=== PATIENT | female | born 1980 | race Caucasian/White ===

== ENCOUNTER → 2022-11-28 08:29 | Outpatient (CLI) | payer OTHER, MEDICAID, SELFPAY ==
[2022-11-28 09:14] LABS: Hematocrit 41.4 % (36-46); Hemoglobin 14.5 g/dL (12.0-16.0); Mean Corpuscular Hemoglobin 30.4 PG (26-34); Mean Corpuscular Volume 86.9 fL (80-100); Platelet Count 240 X10^3/uL (150-400); Red Blood Cell Count 4.77 X10^6/uL (4.0-5.2); Red Cell Distribution Width 12.7 % (11.6-14.8); White Blood Cell Count 5.5 X10^3/uL (4.5-11.0)
[2022-11-28 10:29] LABS: HEMOLYSIS < 15 (0-50); Iron 70 ug/dL (37-170)
[2022-11-28 10:31] LABS: Alanine Aminotransferase 38 IU/L (<35); Albumin 4.4 g/dL (3.5-5.0); Albumin Globulin Ratio 1.5 (1.0-2.8); Alkaline Phosphatase 43 U/L (38-126); Aspartate Aminotransferase 28 IU/L (14-36); BUN Creatinine Ratio 23.1 (6-22); Bilirubin Total 0.6 mg/dL (0.2-1.3); Blood Urea Nitrogen 21 mg/dL (7-17); Calcium 9.1 mg/dL (8.4-10.2); Carbon Dioxide 29 mmol/L (22-32); Chloride 102 mmol/L (98-107); Cholesterol 180 mg/dL (140-199); Estimated Glomerular Filt Rate > 60 mL/min (>60); Glucose 89 mg/dL (70-100); HDL Cholesterol 86 mg/dL (40-60); HEMOLYSIS < 15 (0-50); LDL Cholesterol Calculated 83 mg/dL (<100); Potassium 4.7 mmol/L (3.4-5.1); Sodium 139 mmol/L (137-145); Total Protein 7.4 g/dL (6.3-8.2); Triglycerides 54 mg/dL (35-150)
[2022-11-28 10:41] LABS: Percent Iron Saturation 29 % (15-50); Total Iron Binding Capacity 245 ug/dL (265-497); Transferrin 194 mg/dL (206-381)
[2022-11-28 11:01] LABS: TSH w/ Reflex to FT4 1.15 uIU/mL (0.47-4.68)
[2022-11-28 11:06] LABS: Ferritin 44 ng/mL (6-137); Testosterone 89.1 ng/dL (5.71-77.0)
== END ==
PROVIDERS: PCP Registered Nurse Diabetes Educator; Referring Provider Registered Nurse Diabetes Educator; Visit Provider Registered Nurse Diabetes Educator
DX: Z00.00 Encounter for general adult medical examination without abnormal findings (principal); L68.0 Hirsutism
CPT/HCPCS: 36415; 80053; 80061; 82627; 82728; 83498; 83540; 83550; 84403; 84443; 85027

== ENCOUNTER → 2022-12-22 16:48 | Outpatient (CLI) | payer OTHER, MEDICAID, SELFPAY ==
--- NOTE | 2022-12-22 16:49 | DI.US.S_ITS ---
PROCEDURE: US PELVIC COMPLETE INDICATIONS: EVALUATE HYPERANDROGENISM , IRREGULAR MENSES TECHNIQUE: Real-time scanning was performed of the pelvic organs, with image documentation. Additional endovaginal scanning was necessary due to incomplete visualization of the adnexal and endometrial structures by transabdominal scanning. COMPARISON: [facility], US, PELVIC COMPLETE, 01/28/2014, 9:02. FINDINGS: Uterus: Uterus is anteverted and normal in size at 9.7 x 4.9 x 7.7 cm. The myometrium is homogeneous. The endometrium measures 13 mm combined thickness. No focal intrauterine abnormality seen. Ovaries: The right ovary measures 3.4 x 2.5 x 2.9 cm, with a calculated ovarian volume of 13 cc. The left ovary measures 3.3 x 2.4 x 2.5 cm, with a calculated ovarian volume of 10 cc. The ovaries have a normal sonographic appearance. There greater than 12 follicles seen in each ovary. No suspicious adnexal masses are seen. There is a 2.7 x 1.9 x 1.7 cm complex, septated cyst in the left ovary. There is mild peripheral vascularity. Other: No pathologic free abdominal or pelvic fluid. IMPRESSION: 1. Prominent ovarian volumes with greater than 12 follicles in each ovary. Findings may be seen in polycystic ovarian syndrome. 2. A 2.7 cm complex, septated left ovarian cyst. Recommend follow-up pelvic ultrasound in 6-12 weeks to document stability versus resolution. We strive to produce accurate, complete, and clear reports of imaging services. To assist us in improving patient care, this report was composed using standard report templates and voice recognition software. Therefore, it may contain abnormal punctuation, insertions and/or omissions. Occasional wrong-word or sound-alike substitutions may occur. Though we review the report and make efforts to correct it, we do recommend that the report be read carefully in proper context to recognize any text inaccuracies. Dictated by: Luis Rowe M.D. on 12/23/2022 at 12:04 Approved by: Luis Rowe M.D. on 12/23/2022 at 12:07
== END ==
PROVIDERS: PCP Registered Nurse Diabetes Educator; Referring Provider Registered Nurse Diabetes Educator; Visit Provider Registered Nurse Diabetes Educator
DX: N92.6 Irregular menstruation, unspecified (principal); R79.89 Other specified abnormal findings of blood chemistry; L68.0 Hirsutism; N83.202 Unspecified ovarian cyst, left side
CPT/HCPCS: 76830; 76856

== ENCOUNTER → 2023-02-06 16:38 | Outpatient (CLI) | payer OTHER, MEDICAID, SELFPAY ==
--- NOTE | 2023-02-06 16:41 | DI.US.S_ITS ---
PROCEDURE: US PELVIC COMPLETE INDICATIONS: f/u L ovarian cyst TECHNIQUE: Real-time scanning was performed of the pelvic organs, with image documentation. Additional endovaginal scanning was necessary due to incomplete visualization of the adnexal and endometrial structures by transabdominal scanning. COMPARISON: [facility], US, US PELVIC COMPLETE, 12/22/2022, 17:02. FINDINGS: Uterus: The uterus is normal in size at 8.2 x 5.3 x 6.9 cm. The myometrium is homogeneous. The endometrium measures 5 mm combined thickness. Ovaries: The right ovary measures 3.1 x 1.9 x 1.9 cm, with a calculated ovarian volume of 5.2 cc. A right paraovarian cyst can be seen, which measures up to 16, which is not regarded to be suspicious. The left ovary measures 3 x 2.8 x 3.3 cm, with a calculated ovarian volume of 14.4 cc. The previously seen septated left ovarian cyst has resolved. The ovaries have a normal sonographic appearance. Less than 12 follicles can be seen in each ovary. No adnexal masses are seen. Other: No pathologic free abdominal or pelvic fluid. IMPRESSION: Interval resolution of the previously seen left ovarian septated cyst. We strive to produce accurate, complete, and clear reports of imaging services. To assist us in improving patient care, this report was composed using standard report templates and voice recognition software. Therefore, it may contain abnormal punctuation, insertions and/or omissions. Occasional wrong-word or sound-alike substitutions may occur. Though we review the report and make efforts to correct it, we do recommend that the report be read carefully in proper context to recognize any text inaccuracies. Dictated by: Arjun Alonso M.D. on 02/06/2023 at 16:59 Approved by: Arjun Alonso M.D. on 02/06/2023 at 17:00
== END ==
PROVIDERS: PCP Registered Nurse Diabetes Educator; Referring Provider Registered Nurse Diabetes Educator; Visit Provider Registered Nurse Diabetes Educator
DX: N83.202 Unspecified ovarian cyst, left side (principal)
CPT/HCPCS: 76856

== ENCOUNTER → 2023-05-09 16:00 | Outpatient (CLI) | payer OTHER, MEDICAID, SELFPAY ==
[2023-05-09 17:06] LABS: Alanine Aminotransferase 33 IU/L (<35); Albumin 4.5 g/dL (3.5-5.0); Albumin Globulin Ratio 1.5 (1.0-2.8); Alkaline Phosphatase 42 U/L (38-126); Aspartate Aminotransferase 33 IU/L (14-36); Bilirubin Total 0.7 mg/dL (0.2-1.3); Blood Urea Nitrogen 20 mg/dL (7-17); Calcium 8.9 mg/dL (8.4-10.2); Carbon Dioxide 30 mmol/L (22-32); Chloride 102 mmol/L (98-107); Estimated Glomerular Filt Rate > 60 mL/min (>60); Glucose 102 mg/dL (70-100); HEMOLYSIS < 15 (0-50); Potassium 3.5 mmol/L (3.4-5.1); Sodium 138 mmol/L (137-145); Total Protein 7.5 g/dL (6.3-8.2)
[2023-05-09 17:21] LABS: Prolactin 9.5 ng/mL (3.0-18.6)
[2023-05-09 18:18] LABS: Follicle Stimulating Hormone 5.52 mIU/mL; Luteinizing Hormone 22.2 mIU/mL
[2023-05-12 10:31] LABS: Insulin Level Total 10.6 uIU/mL (2.6-24.9)
[2023-05-15 08:42] LABS: Percent Free Testosterone 2.06 % (0.50-2.80); Testosterone Free 1.12 ng/dL (0.10-0.85); Testosterone Total 54.2 ng/dL (.)
== END ==
PROVIDERS: Family Provider Registered Nurse Diabetes Educator; PCP Registered Nurse Diabetes Educator; Referring Provider Internal Medicine Endocrinology, Diabetes & Metabolism; Visit Provider Internal Medicine Endocrinology, Diabetes & Metabolism
DX: R79.89 Other specified abnormal findings of blood chemistry (principal); L68.0 Hirsutism; L65.9 Nonscarring hair loss, unspecified
CPT/HCPCS: 36415; 80053; 82157; 82627; 83001; 83002; 83498; 83525; 84146; 84402; 84403; 84443

== ENCOUNTER → 2023-05-16 12:42 | Outpatient (CLI) | payer OTHER, MEDICAID, SELFPAY | PROVIDERS: Family Provider Registered Nurse Diabetes Educator; PCP Registered Nurse Diabetes Educator; Referring Provider Internal Medicine Endocrinology, Diabetes & Metabolism; Visit Provider Internal Medicine Endocrinology, Diabetes & Metabolism | DX: R79.89 Other specified abnormal findings of blood chemistry (principal) | CPT/HCPCS: 82533 ==

== ENCOUNTER 2023-06-28 10:30 | Outpatient (RCR) | payer OTHER, MEDICAID, SELFPAY ==
--- NOTE | 2023-03-30 15:51 | PT.OIE ---
Current Diagnoses Pelvic muscle wasting (03/30/23) Other specified dyspareunia (03/30/23) Past Medical History (Last Updated 12/14/22 @ 19:16 by Kristen Pruitt) Abnormal Pap smear of cervix (~2020) Acne (~1995) ADHD (~1981) Chicken pox (~1987) Herpes (~1997) Injury (~2003) Irregular menstrual cycle (~1996) Migraines (~1994) Visit Care Team Role Provider Type JOSSY Roberts Family Provider Advanced Supervisor [employer] Primary Care Provider Specialty: Medical Address: [address] [place] [address] Email: [email or web address] Yamila Taveras MD Attending Provider Physician Referring Provider Specialty: Gynecology KITCHEN HELPER Obstetrics Address: [address] [place] [address] Email: [email or web address] Physical Therapy Initial Evaluation PT-OP-A Visit Information Start: 03/30/23 09:00 Freq: Status: Active Protocol: Document 03/30/23 09:52 [facility] (Rec: 03/30/23 10:54 [facility] [id number]) Out-Patient Physical Therapy Visit Information Visit Information Visit Type Initial Evaluation Visit Start Time 09:50 Visit Stop Time 10:35 Total Visit Minutes 45 Visit Number 1 Evaluation Information Evaluation Date 03/30/23 PT-OP-B Current Condition Start: 03/30/23 09:00 Freq: Status: Active Protocol: Document 03/30/23 09:52 [facility] (Rec: 03/30/23 10:54 [facility] [id number]) Current Condition History of Current Condition Onset Date 2010 Current Complaints uterine prolase and decreased sensation of pelvic floor, History of Current Condition her mom has had prolapse, she has had 4 large children, she did notice a few times when jumping on the trampoline she was leaking. She did use a nmes unit but she feels like it lessened her senstation with intercourse. 4th degree tear last 2000 -2010 she tore on her 2nd she tore the most in 2003. Episiotomy with the other 2. She wants to prevent further prolapse, she also notes her cervix is low and lower than in her past. It does hurt sometimes during intercouse the position on the cervix. 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 Her symptoms are intermittent. Sometimes if her bladder is full if she is working hard then she will have occosional leakage. Pt notes she is constipated alot. Right before menstruation she can feel her uterus more heavy. Treatment Goals Patient/Caregiver Goals pts goals include preventing further prolapse symptoms and improving sensation of her pelvic floor PT-OP-C Subjective Start: 03/30/23 09:00 Freq: Status: Active Protocol: Document 03/30/23 09:52 [facility] (Rec: 03/30/23 10:54 [facility] [id number]) Patient Questionnaires Pelvic Pain and Urgency/Frequency Patient Symptom Scale Pelvic Pain Score 8 PT-OP-I Pelvic Floor Start: 03/30/23 09:00 Freq: Status: Active Protocol: Document 03/30/23 10:54 [facility] (Rec: 03/30/23 11:07 [facility] [id number]) Pelvic Floor Assessment Urine Pelvic Floor Surgery No Urinary Symptoms Falling Out Feeling/Heavy Other Urinary Symptoms intermittent feeling that her cervix is low, intercourse can be painful when she is feeling her cervix is low. pt also reports decreased sensation of a pelvic floor contraction Other Leakage Causes leakage only when jumping on the trampoline and rarely happens Pelvic Clock Pelvic Clock 12-3 Atrophy Pelvic Clock 3-6 Tightness Pelvic Clock 6-9 Tightness Pelvic Clock Other pt has some tightness following a pelvic floor contraction on the lateral willis of the levator ani Prolapse Uterine Prolapse Grade 1 Prolapse Comments able to feel cervix, pt notes today it does not feel as prolapsed but that it can intermittently feel lower at times Perineal Descent Resting Absent Contraction Ability Manual Muscle Testing Left 2 Manual Muscle Testing Right 2 Manual Muscle Testing Anterior 1 Manual Muscle Testing Posterior 2 PT-OP-Q Treatments Start: 03/30/23 09:00 Freq: Status: Active Protocol: Document 03/30/23 10:54 [facility] (Rec: 03/30/23 11:07 [facility] [id number]) Therapeutic Exercises Supine Exercises pelvic floor long holds Reps/Minutes 10 sec on 10 sec off x 10 reps 2 xms per day Comments pt given the option of using a pelvic wedge Self-Care/Home Management Treatment Education Patient Education Home Exercise Program Other Education pt was educated on using the kegel weights from [facility] for proprioception with contraction, she was educated on using a wedge to elevate her pelvis to decompress her pelvic organs PT-OP-T Assessment and Plan Start: 03/30/23 09:00 Freq: Status: Active Protocol: Document 03/30/23 09:52 [facility] (Rec: 03/30/23 10:54 [facility] [id number]) Physical Therapy Assessment Rehab Potential Rehabilitation Potential Excellent Evaluation Complexity Number of Personal Factors/Comorbidities 0 Number of Body Systems Impaired 1-2 Clinical Presentation at Evaluation Stable Impairments Impairments Activity Tolerance,Pain,Soft Tissue Mobility,Strength,Tone Other Impairments decreased sensation of pelvic floor contraction, pelvic pressure and dysparunia Goals 3 Impairment pt lacks a home program for pelvic floor strengthening Penitentiary Goal (LTG) pt is independent with a HEP for pelvic floor strengthening LTG Duration 8 weeks 2 Impairment dysparunia with c/o pain with penetration at the cervix and pt notes she can feel when her cervix is lower Short Term Goal (STG) Sadia is educated in pelvic decompression positions to help relieve pressure and pain at the cervix and to provide docompression to the pelvic organs STG Duration 3 weeks Penitentiary Goal (LTG) Sadia reports a overall reduction in pain with intercourse LTG Duration 8 weeks 1 Impairment pelvic floor weakness especially in the anterior pelvic floor 1/5 MMT and 2/5 MMT for the lateral willis of the pelvic floor. Skill Training Program Coordinator Goal (LTG) Sadia is able to improve her pelvic floor strength to 2-3/5 MMT for the anterior and lateral willis to provide improved pelvic organ support. LTG Duration 8 weeks Assessment Summary Assessment Sadia is a 42 year old female referred to PT with symptoms of intermittent pelvic pressure and dysparunia . She notes with intercourse there are times when her cervix feels low and this is painful with penetration. She also reports overall decreased sensation of her pelvic floor since having kids . She has a history of grade 4 perineal tear with childbirth and describes a tightness at her perineum that is tender at times. Sadia reports she will experience urinary leakage at times if jumping on a trampoline but really at no other time. She does have a history of constipation. Sadia would like to prevent any futher descent of her uterus. Her mother has a significant prolapse so she would like to be proactive in preventing further issues with her pelvic floor. With exam today there is midline scar tissue noted in the perineum but no perineal gabbing noted. I did talk to Sadia about scar tissue release and manual therapy techniques that we could do to help with this. I am able to palpate the cervix but it does not seem prolapsed more than a grade 1. Sadia notes she does not feel the pelvic pressure today and reports feeling more pressure before menstruation. She is able to contract the lateral and posterior wall of her levator ani but she is weak in her anterior pelvic floor 1/5 MMT and lateral willis 2/5 MMT. 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 I did show her how to decompress her pelvis with a wedge for evening after she has had a more physical day at work. She could feel decompression in this position and will attempt doing her pelvic floor exercises with her pelvis elevated for improved sensation. Sadia is a good candidate for pelvic floor rehab Physical Therapy Plan Frequency and Duration Frequency of Treatment 1x/Week Duration of treatment (weeks) 12 Plan of Care Start Date 03/30/23 Plan of Care End Date 06/22/23 Therapeutic Interventions Therapeutic Interventions Home Exercise Program,Manual Therapy,Neuromuscular Re- education,Patient/Caregiver Education,Self-Care/Home Management,Soft Tissue Mobilization,Therapeutic Exercises Modalities Biofeedback Next Visit Focus/Plan Next Note Type Treatment Note Next Visit Plan Initiate EMG biofeedback next visit working on anterior pelvic floor facilitation
--- NOTE | 2023-03-30 15:51 | PT.OPPOC ---
Physical, Occupational & Speech Therapy At [facility] Current Diagnoses Pelvic muscle wasting (03/30/23) Other specified dyspareunia (03/30/23) Visit Care Team Role Provider Type JOSSY Roberts Family Provider Advanced City Manager Primary Care Provider Specialty: Medical Address: [address] [place] [address] Email: [email or web address] Yamila Taveras MD Attending Provider Physician Referring Provider Specialty: Gynecology ESTERS AND EMULSIFIERS SUPERVISOR Obstetrics Address: [address] [place] [address], [id number] Email: [email or web address] Plan Of Care PT-OP-T Assessment and Plan Start: 03/30/23 09:00 Freq: Status: Active Protocol: Document 03/30/23 09:52 [facility] (Rec: 03/30/23 10:54 [facility] [id number]) Physical Therapy Assessment Rehab Potential Rehabilitation Potential Excellent Evaluation Complexity Number of Personal Factors/Comorbidities 0 Number of Body Systems Impaired 1-2 Clinical Presentation at Evaluation Stable Impairments Impairments Activity Tolerance,Pain,Soft Tissue Mobility,Strength,Tone Other Impairments decreased sensation of pelvic floor contraction, pelvic pressure and dysparunia Goals 3 Impairment pt lacks a home program for pelvic floor strengthening Locomotive Lubricating Systems Clerk Goal (LTG) pt is independent with a HEP for pelvic floor strengthening LTG Duration 8 weeks 2 Impairment dysparunia with c/o pain with penetration at the cervix and pt notes she can feel when her cervix is lower Short Term Goal (STG) Sadia is educated in pelvic decompression positions to help relieve pressure and pain at the cervix and to provide decompression to the pelvic organs STG Duration 3 weeks Locomotive Lubricating Systems Clerk Goal (LTG) Sadia reports a overall reduction in pain with intercourse LTG Duration 8 weeks 1 Impairment pelvic floor weakness especially in the anterior pelvic floor 1/5 MMT and 2/5 MMT for the lateral willis of the pelvic floor. Locomotive Lubricating Systems Clerk Goal (LTG) Sadia is able to improve her pelvic floor strength to 2-3/5 MMT for the anterior and lateral willis to provide improved pelvic organ support. LTG Duration 8 weeks Assessment Summary Assessment Sadia is a 42 year old female referred to PT with symptoms of intermittent pelvic pressure and dysparunia . She notes with intercourse there are times when her cervix feels low and this is painful with penetration. She also reports overall decreased sensation of her pelvic floor since having kids . She has a history of grade 4 perineal tear with childbirth and describes a tightness at her perineum that is tender at times. Sadia reports she will experience urinary leakage at times if jumping on a trampoline but really at no other time. She does have a history of constipation. Sadia would like to prevent any futher descent of her uterus. Her mother has a significant prolapse so she would like to be proactive in preventing further issues with her pelvic floor. With exam today there is midline scar tissue noted in the perineum but no perineal gabbing noted. I did talk to Sadia about scar tissue release and manual therapy techniques that we could do to help with this. I am able to palpate the cervix but it does not seem prolapsed more than a grade 1. Sadia notes she does not feel the pelvic pressure today and reports feeling more pressure before menstruation. She is able to contract the lateral and posterior wall of her levator ani but she is weak in her anterior pelvic floor 1/5 MMT and lateral willis 2/5 MMT. 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 I did show her how to decompress her pelvis with a wedge for evening after she has had a more physical day at work. She could feel decompression in this position and will attempt doing her pelvic floor exercises with her pelvis elevated for improved sensation. Sadia is a good candidate for pelvic floor rehab Physical Therapy Plan Frequency and Duration Frequency of Treatment 1x/Week Duration of treatment (weeks) 12 Plan of Care Start Date 03/30/23 Plan of Care End Date 06/22/23 Therapeutic Interventions Therapeutic Interventions Home Exercise Program,Manual Therapy,Neuromuscular Re- education,Patient/Caregiver Education,Self-Care/Home Management,Soft Tissue Mobilization,Therapeutic Exercises Modalities Biofeedback Next Visit Focus/Plan Next Note Type Treatment Note Next Visit Plan Initiate EMG biofeedback next visit working on anterior pelvic floor facilitation Plan of Care Dates Plan of Care Start Date 03/30/23 Plan of Care End Date 06/22/23 Electronically Signed by: Marti Salomon, PT 03/30/23 [id number] If you are in agreement with this Plan of Care, please return a signed and dated copy. I have reviewed this Plan of Care and certify that the skilled therapy services above are required to meet the patient?s needs. Physician Signature Date Printed Name and Credentials Clinical Instructor Signature Printed Name and Credentials
--- NOTE | 2023-05-09 16:05 | PT.OTN ---
Current Diagnoses Pelvic muscle wasting (05/09/23) Other specified dyspareunia (05/09/23) Physical Therapy Treatment Note PT-OP-A Visit Information Start: 03/30/23 09:00 Freq: Status: Active Protocol: Document 05/09/23 14:59 [facility] (Rec: 05/09/23 15:09 [facility] [id number]) Out-Patient Physical Therapy Visit Information Visit Information Visit Type Treatment Note Visit Start Time 15:00 Visit Stop Time 15:45 Total Visit Minutes 45 Visit Number 2 PT-OP-B Current Condition Start: 03/30/23 09:00 Freq: Status: Active Protocol: Document 03/30/23 09:52 [facility] (Rec: 03/30/23 10:54 [facility] [id number]) Current Condition History of Current Condition Onset Date 2010 Current Complaints uterine prolase and decreased sensation of pelvic floor, History of Current Condition her mom has had prolapse, she has had 4 large children, she did notice a few times when jumping on the trampoline she was leaking. She did use a nmes unit but she feels like it lessened her senstation with intercourse. 4th degree tear last 2000 -2010 she tore on her 2nd she tore the most in 2003. Episiotomy with the other 2. She wants to prevent further prolapse, she also notes her cervix is low and lower than in her past. It does hurt sometimes during intercouse the position on the cervix. 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 Her symptoms are intermittent. Sometimes if her bladder is full if she is working hard then she will have occosional leakage. Pt notes she is constipated alot. Right before menstruation she can feel her uterus more heavy. Treatment Goals Patient/Caregiver Goals pts goals include preventing further prolapse symptoms and improving sensation of her pelvic floor PT-OP-C Subjective Start: 03/30/23 09:00 Freq: Status: Active Protocol: Document 05/09/23 14:59 [facility] (Rec: 05/09/23 15:09 [facility] [id number]) OP-PT Subjective Patient Comments Patient Comments Piper notes she has been trying to work on her pelvic floor exercises PT-OP-I Pelvic Floor Start: 03/30/23 09:00 Freq: Status: Active Protocol: Document 05/09/23 15:09 [facility] (Rec: 05/09/23 16:00 [facility] [id number]) Pelvic Floor Assessment Urine Pelvic Floor Surgery No Urinary Symptoms Falling Out Feeling/Heavy Other Urinary Symptoms intermittent feeling that her cervix is low, intercourse can be painful when she is feeling her cervix is low. pt also reports decreased sensation of a pelvic floor contraction Other Leakage Causes leakage only when jumping on the trampoline and rarely happens PT-OP-Q Treatments Start: 03/30/23 09:00 Freq: Status: Active Protocol: Document 05/09/23 15:09 [facility] (Rec: 05/09/23 16:00 [facility] [id number]) Therapeutic Exercises Supine Exercises modified pelvic floor stretch Reps/Minutes hold 1-2 minutes supine ball squeeze with pelvic floor contraction Reps/Minutes x 10 reps with emphasis on anterior pelvic floor contraction pelvic floor long holds Reps/Minutes 10 sec on and 10 sec off Comments 16.9 and max of 26uv Neuro Re-Education Treatment Other Activities NMES for the pelvic floor Comments pt needed the stim to level 30 in order to feel the sensation of the anterior pelvic floor Self-Care/Home Management Treatment Education Patient Education Home Exercise Program Other Education pt was educated on use of her home NMES unit work work on anterior pelvic floor facilitation. She was also educated on full pelvic floor relaxation following contractions and was given a pelvic floor relaxation stretch PT-OP-T Assessment and Plan Start: 03/30/23 09:00 Freq: Status: Active Protocol: Document 05/09/23 14:59 [facility] (Rec: 05/09/23 15:09 [facility] [id number]) Physical Therapy Assessment Goals 3 Impairment pt lacks a home program for pelvic floor strengthening [facility] Goal (LTG) pt is independent with a HEP for pelvic floor strengthening LTG Duration 8 weeks 2 Impairment dysparunia with c/o pain with penetration at the cervix and pt notes she can feel when her cervix is lower Short Term Goal (STG) Sadia is educated in pelvic decompression positions to help relieve pressure and pain at the cervix and to provide docompression to the pelvic organs STG Duration 3 weeks Decal Decorator Goal (LTG) Sadia reports a overall reduction in pain with intercourse LTG Duration 8 weeks 1 Impairment pelvic floor weakness especially in the anterior pelvic floor 1/5 MMT and 2/5 MMT for the lateral willis of the pelvic floor. [facility] Goal (LTG) Sadia is able to improve her pelvic floor strength to 2-3/5 MMT for the anterior and lateral willis to provide improved pelvic organ support. LTG Duration 8 weeks Assessment Summary Assessment Pt was able to feel the anterior pelvic floor a little bit with palpation at the pubic bone, she was also given the ball squeeze to help with adductor assist. Her resting tone was around 2.5 and she was given pelvic floor stretch to help the lateral willis relax following a contraction Physical Therapy Plan Frequency and Duration Frequency of Treatment 1x/Week Duration of treatment (weeks) 12 Plan of Care Start Date 03/30/23 Plan of Care End Date 06/22/23 Therapeutic Interventions Therapeutic Interventions Home Exercise Program,Manual Therapy,Neuromuscular Re- education,Patient/Caregiver Education,Self-Care/Home Management,Soft Tissue Mobilization,Therapeutic Exercises Modalities Biofeedback Next Visit Focus/Plan Next Note Type Treatment Note Next Visit Plan continue with EMG biofeedback, NMES and TA stabilization. Work in quadruped next visit on TA facilitation and plank position
--- NOTE | 2023-05-31 11:35 | PT.OTN ---
Current Diagnoses Pelvic muscle wasting (05/31/23) Other specified dyspareunia (05/31/23) Physical Therapy Treatment Note PT-OP-A Visit Information Start: 03/30/23 09:00 Freq: Status: Active Protocol: Document 05/31/23 10:39 [facility] (Rec: 05/31/23 11:35 [facility] [id number]) Out-Patient Physical Therapy Visit Information Visit Information Visit Type Treatment Note Visit Start Time 10:39 Visit Stop Time 11:20 Total Visit Minutes 41 Visit Number 3 PT-OP-B Current Condition Start: 03/30/23 09:00 Freq: Status: Active Protocol: Document 03/30/23 09:52 [facility] (Rec: 03/30/23 10:54 [facility] [id number]) Current Condition History of Current Condition Onset Date 2010 Current Complaints uterine prolase and decreased sensation of pelvic floor, History of Current Condition her mom has had prolapse, she has had 4 large children, she did notice a few times when jumping on the trampoline she was leaking. She did use a nmes unit but she feels like it lessened her senstation with intercourse. 4th degree tear last 2000 -2010 she tore on her 2nd she tore the most in 2003. Episiotomy with the other 2. She wants to prevent further prolapse, she also notes her cervix is low and lower than in her past. It does hurt sometimes during intercouse the position on the cervix. 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 Her symptoms are intermittent. Sometimes if her bladder is full if she is working hard then she will have occosional leakage. Pt notes she is constipated alot. Right before menstruation she can feel her uterus more heavy. Treatment Goals Patient/Caregiver Goals pts goals include preventing further prolapse symptoms and improving sensation of her pelvic floor PT-OP-C Subjective Start: 03/30/23 09:00 Freq: Status: Active Protocol: Document 05/31/23 10:39 [facility] (Rec: 05/31/23 11:35 [facility] [id number]) OP-PT Subjective Patient Comments Patient Comments pt reports she has been really busy with work and hasn't had time to do a lot of her exercises. She brings in her kegel crew trainer to her appt PT-OP-I Pelvic Floor Start: 03/30/23 09:00 Freq: Status: Active Protocol: Document 05/09/23 15:09 [facility] (Rec: 05/09/23 16:00 [facility] [id number]) Pelvic Floor Assessment Urine Pelvic Floor Surgery No Urinary Symptoms Falling Out Feeling/Heavy Other Urinary Symptoms intermittent feeling that her cervix is low, intercourse can be painful when she is feeling her cervix is low. pt also reports decreased sensation of a pelvic floor contraction Other Leakage Causes leakage only when jumping on the trampoline and rarely happens PT-OP-Q Treatments Start: 03/30/23 09:00 Freq: Status: Active Protocol: Document 05/31/23 10:39 [facility] (Rec: 05/31/23 11:35 [facility] [id number]) Therapeutic Exercises Supine Exercises pelvic floor long holds Comments 13.1 20.6 uv Neuro Re-Education Treatment Other Activities NMES for the pelvic floor Comments pt needed the stim to level 30 in order to feel the sensation of the anterior pelvic floor. She was able to feel sensation however it was weak. Self-Care/Home Management Treatment Education Patient Education Home Exercise Program Other Education pt brought in her NMES unit and she was shown programs to use at home, pt was also educated on increasing water as she is having bowel movements every 3 days, pt educated in prone position for activation of the anterior pelvic floor. PT-OP-T Assessment and Plan Start: 03/30/23 09:00 Freq: Status: Active Protocol: Document 05/31/23 10:39 [facility] (Rec: 05/31/23 11:35 [facility] [id number]) Physical Therapy Assessment Assessment Summary Assessment Piper is showing a better resting tone on EMG biofeedback, she was encouraged to use the program with her home NMES unit that gives rest breaks verses the program that gives the stim continously. Will recheck anterior pelvic floor strength next visit Physical Therapy Plan Frequency and Duration Frequency of Treatment 1x/Week Duration of treatment (weeks) 12 Plan of Care Start Date 03/30/23 Plan of Care End Date 06/22/23 Next Visit Focus/Plan Next Note Type Progress Note Next Visit Plan Progress note to MD next visit , recheck anterior pelvic floor strength with MMT
--- NOTE | 2023-06-28 13:13 | PT.OTN ---
Current Diagnoses Pelvic muscle wasting (06/28/23) Other specified dyspareunia (06/28/23) Physical Therapy Treatment Note PT-OP-A Visit Information Start: 03/30/23 09:00 Freq: Status: Active Protocol: Document 06/28/23 10:30 [facility] (Rec: 06/28/23 13:05 [facility] [id number]) Out-Patient Physical Therapy Visit Information Visit Information Visit Type Treatment Note Visit Start Time 10:30 Visit Stop Time 11:15 Total Visit Minutes 45 Visit Number 4 PT-OP-B Current Condition Start: 03/30/23 09:00 Freq: Status: Active Protocol: Document 03/30/23 09:52 [facility] (Rec: 03/30/23 10:54 [facility] [id number]) Current Condition History of Current Condition Onset Date 2010 Current Complaints uterine prolase and decreased sensation of pelvic floor, History of Current Condition her mom has had prolapse, she has had 4 large children, she did notice a few times when jumping on the trampoline she was leaking. She did use a nmes unit but she feels like it lessened her senstation with intercourse. 4th degree tear last 2000 -2010 she tore on her 2nd she tore the most in 2003. Episiotomy with the other 2. She wants to prevent further prolapse, she also notes her cervix is low and lower than in her past. It does hurt sometimes during intercouse the position on the cervix. 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 Her symptoms are intermittent. Sometimes if her bladder is full if she is working hard then she will have occosional leakage. Pt notes she is constipated alot. Right before menstruation she can feel her uterus more heavy. Treatment Goals Patient/Caregiver Goals pts goals include preventing further prolapse symptoms and improving sensation of her pelvic floor PT-OP-C Subjective Start: 03/30/23 09:00 Freq: Status: Active Protocol: Document 06/28/23 10:30 [facility] (Rec: 06/28/23 11:13 [facility] [id number]) OP-PT Subjective Patient Comments Patient Comments pt notes she hasn't had any symptoms of pelvic pressure, she isn't experiencing the pain with intercourse that she was its just that the sensation is not what she would like it to be yet Patient Reported Progress Improving PT-OP-I Pelvic Floor Start: 03/30/23 09:00 Freq: Status: Active Protocol: Document 05/09/23 15:09 [facility] (Rec: 05/09/23 16:00 [facility] [id number]) Pelvic Floor Assessment Urine Pelvic Floor Surgery No Urinary Symptoms Falling Out Feeling/Heavy Other Urinary Symptoms intermittent feeling that her cervix is low, intercourse can be painful when she is feeling her cervix is low. pt also reports decreased sensation of a pelvic floor contraction Other Leakage Causes leakage only when jumping on the trampoline and rarely happens PT-OP-Q Treatments Start: 03/30/23 09:00 Freq: Status: Active Protocol: Document 06/28/23 10:30 [facility] (Rec: 06/28/23 11:13 [facility] [id number]) Therapeutic Exercises Supine Exercises pelvic floor long holds Comments average 9.2 max 15.4 pt demonstrated good resting tone Manual Therapy Treatment Other Other Manual Treatments manual recheck of the pelvic floor 2/5MMT for anterior 3/5 left wall, 4/5 right wall and posterior wall which is good improvement. Pt notes decreased sensation of the left lateral wall of the levator ani as compared to the right Neuro Re-Education Treatment Other Activities NMES for the pelvic floor Comments pt felt the sensation at level 12 and went to level 16 Self-Care/Home Management Treatment Education Patient Education Home Exercise Program Other Education education on use of home NMES unit PT-OP-T Assessment and Plan Start: 03/30/23 09:00 Freq: Status: Active Protocol: Document 06/28/23 10:30 [facility] (Rec: 06/28/23 11:13 [facility] [id number]) Physical Therapy Assessment Goals 3 Impairment pt lacks a home program for pelvic floor strengthening [facility] Goal (LTG) pt is independent with a HEP for pelvic floor strengthening GOAL MET LTG Duration 8 weeks 2 Impairment dysparunia with c/o pain with penetration at the cervix and pt notes she can feel when her cervix is lower Short Term Goal (STG) Sadia is educated in pelvic decompression positions to help relieve pressure and pain at the cervix and to provide docompression to the pelvic organs GOAL MET STG Duration 3 weeks [facility] Goal (LTG) Sadia reports a overall reduction in pain with intercourse Good progress, pt notes decreased pain but she still notes decreased sensation with intercourse LTG Duration 8 weeks 1 Impairment pelvic floor weakness especially in the anterior pelvic floor 1/5 MMT and 2/5 MMT for the lateral willis of the pelvic floor. [facility] Goal (LTG) Sadia is able to improve her pelvic floor strength to 2-3/5 MMT for the anterior and lateral willis to provide improved pelvic organ support. Good progress with MMT today the posterior wall is now 4/5, right lateral wall 4/5, anterior wall 2/5 and 3/5 MMT for left lateral wall LTG Duration 8 weeks Assessment Summary Assessment Sadia is showing good progress with improved resting tone and improved pelvic floor strength. She is still weaker on the left lateral wall of the levator ani and does not have as much sensation on the left as compared to her right. She is no longer feeling pain with intercourse as there is improved support to her pelvic organs. She does note that she is still lacking full sensation of her pelvic floor with intercourse. She has a home NMES unit and I have encouraged her to use that to help improve sensation with 10 sec on and 10 sec off setting. Sadia would benefit from continued PT and she has 2 visits left scheduled. Physical Therapy Plan Frequency and Duration Frequency of Treatment 1x/Week Duration of treatment (weeks) 8 Plan of Care Start Date 06/28/23 Plan of Care End Date 08/23/23
--- NOTE | 2023-06-28 13:14 | PT.OPPOC ---
Physical, Occupational & Speech Therapy At 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 Obstetrics Address: [address] [place] [address], [id number] Email: [email or web address] Plan Of Care PT-OP-T Assessment and Plan Start: 03/30/23 09:00 Freq: Status: Active Protocol: Document 06/28/23 10:30 [facility] (Rec: 06/28/23 11:13 [facility] [id number]) Physical Therapy Assessment Goals 3 Impairment pt lacks a home program for pelvic floor strengthening Area Safety Manager Goal (LTG) pt is independent with a HEP for pelvic floor strengthening GOAL MET LTG Duration 8 weeks 2 Impairment dysparunia with c/o pain with penetration at the cervix and pt notes she can feel when her cervix is lower Short Term Goal (STG) Sadia is educated in pelvic decompression positions to help relieve pressure and pain at the cervix and to provide decompression to the pelvic organs GOAL MET STG Duration 3 weeks Area Safety Manager Goal (LTG) Sadia reports a overall reduction in pain with intercourse Good progress, pt notes decreased pain but she still notes decreased sensation with intercourse LTG Duration 8 weeks 1 Impairment pelvic floor weakness especially in the anterior pelvic floor 1/5 MMT and 2/5 MMT for the lateral willis of the pelvic floor. Area Safety Manager Goal (LTG) Sadia is able to improve her pelvic floor strength to 2-3/5 MMT for the anterior and lateral willis to provide improved pelvic organ support. Good progress with MMT today the posterior wall is now 4/5, right lateral wall 4/5, anterior wall 2/5 and 3/5 MMT for left lateral wall LTG Duration 8 weeks Assessment Summary Assessment Sadia is showing good progress with improved resting tone and improved pelvic floor strength. She is still weaker on the left lateral wall of the levator ani and does not have as much sensation on the left as compared to her right. She is no longer feeling pain with intercourse as there is improved support to her pelvic organs. She does note that she is still lacking full sensation of her pelvic floor with intercourse. She has a home NMES unit and I have encouraged her to use that to help improve sensation with 10 sec on and 10 sec off setting. Sadia would benefit from continued PT and she has 2 visits left scheduled. Physical Therapy Plan Frequency and Duration Frequency of Treatment 1x/Week Duration of treatment (weeks) 8 Plan of Care Start Date 06/28/23 Plan of Care End Date 08/23/23 Plan of Care Dates Plan of Care Start Date 06/28/23 Plan of Care End Date 08/23/23 Electronically Signed by: Marti Salomon, PT 06/28/23 [id number] If you are in agreement with this Plan of Care, please return a signed and dated copy. I have reviewed this Plan of Care and certify that the skilled therapy services above are required to meet the patient?s needs. Physician Signature Date Printed Name and Credentials Clinical Instructor Signature Printed Name and Credentials
--- NOTE | 2023-10-17 09:40 | PT.OPDS ---
Current Diagnoses Pelvic muscle wasting (06/28/23) Other specified dyspareunia (06/28/23) Visit Care Team Role Provider Type JOSSY Roberts Family Provider [employer] Primary Care Provider Specialty: Medical Address: [address] [place] [address], [facility] Email: [email or web address] Yamila Taveras MD Attending Provider Physician Referring Provider Specialty: Gynecology [employer] PROF[employer]AL Obstetrics Address: [address] [place] [address], [id number] Email: [email or web address] Visit Number Visit Number 4 Discharge Summary PT-OP-B Current Condition Start: 03/30/23 09:00 Freq: Status: Active Protocol: Document 03/30/23 09:52 [facility] (Rec: 03/30/23 10:54 [facility] [id number]) Current Condition History of Current Condition Onset Date 2010 Current Complaints uterine prolase and decreased sensation of pelvic floor, History of Current Condition her mom has had prolapse, she has had 4 large children, she did notice a few times when jumping on the trampoline she was leaking. She did use a nmes unit but she feels like it lessened her senstation with intercourse. 4th degree tear last 2000 -2010 she tore on her 2nd she tore the most in 2003. Episiotomy with the other 2. She wants to prevent further prolapse, she also notes her cervix is low and lower than in her past. It does hurt sometimes during intercouse the position on the cervix. 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 Her symptoms are intermittent. Sometimes if her bladder is full if she is working hard then she will have occosional leakage. Pt notes she is constipated alot. Right before menstruation she can feel her uterus more heavy. Treatment Goals Patient/Caregiver Goals pts goals include preventing further prolapse symptoms and improving sensation of her pelvic floor PT-OP-C Subjective Start: 03/30/23 09:00 Freq: Status: Active Protocol: Document 06/28/23 10:30 [facility] (Rec: 06/28/23 11:13 [facility] [id number]) OP-PT Subjective Patient Comments Patient Comments pt notes she hasn't had any symptoms of pelvic pressure, she isn't experiencing the pain with intercourse that she was its just that the sensation is not what she would like it to be yet Patient Reported Progress Improving PT-OP-I Pelvic Floor Start: 03/30/23 09:00 Freq: Status: Active Protocol: Document 05/09/23 15:09 [facility] (Rec: 05/09/23 16:00 [facility] [id number]) Pelvic Floor Assessment Urine Pelvic Floor Surgery No Urinary Symptoms Falling Out Feeling/Heavy Other Urinary Symptoms intermittent feeling that her cervix is low, intercourse can be painful when she is feeling her cervix is low. pt also reports decreased sensation of a pelvic floor contraction Other Leakage Causes leakage only when jumping on the trampoline and rarely happens PT-OP-T Assessment and Plan Start: 03/30/23 09:00 Freq: Status: Active Protocol: Document 10/17/23 09:38 [facility] (Rec: 10/17/23 09:40 [facility] [id number]) Physical Therapy Assessment Assessment Summary Assessment Piper has needed to cx her remaining PT visits. She was showing overall progress with decreased resting tone and improved pelvic floor strength . She still shows left lateral wall is weaker than the right and does have decreased sensation on the left. She will continue working on her HEP and will be discharged at this time from PT Physical Therapy Plan Discharge Physical Therapy Discharge Reasons No Longer Attending PT
== END 2023-10-18 14:54 | disposition home or self-care (01) ==
LOC: PHYS 10:30
PROVIDERS: Family Provider Registered Nurse Diabetes Educator; PCP Registered Nurse Diabetes Educator; Referring Provider Obstetrics & Gynecology; Visit Provider Obstetrics & Gynecology
DX: N94.19 Other specified dyspareunia (principal); N81.84 Pelvic muscle wasting
CPT/HCPCS: 97110; 97112; 97140; 97161; 97535

== ENCOUNTER → 2024-05-15 10:45 | Outpatient (CLI) | payer OTHER, MEDICAID, SELFPAY ==
--- NOTE | 2024-05-15 10:47 | DI.RAD.S_ITS ---
PROCEDURE: XR LUMBAR SPINE MIN 4V INDICATIONS: LBP - possible DDD TECHNIQUE: 5 views of the lumbar spine were acquired, including bilateral oblique views.>> COMPARISON: None. FINDINGS: Bones: 5 or nonrib-bearing vertebrae are present. There is normal bony alignment. No vertebral body compression fractures. No suspicious bony lesions. No significant disc height loss. There is multilevel facet arthropathy. Soft tissues: Overlying bowel gas pattern is normal. No suspicious soft tissue calcifications. Bilateral nipple piercings Oblique images: No pars defects. IMPRESSION: 1. No evidence for an acute fracture or subluxation. 2. No significant disc height loss. There is multilevel facet arthropathy. Dictated by: Alek Carlisle M.D. on 05/15/2024 at 13:54 Approved by: Alek Carlisle M.D. on 05/15/2024 at 14:00
[2024-05-23 07:10] LABS: Testosterone Free 0.75 ng/dL (0.10-0.85); Testosterone Total 31.3 ng/dL (.)
== END ==
PROVIDERS: Physician Assistant; Family Provider Registered Nurse Diabetes Educator; PCP Registered Nurse Diabetes Educator; Referring Provider Physician Assistant; Visit Provider Physician Assistant
DX: M47.816 Spondylosis without myelopathy or radiculopathy, lumbar region (principal); M54.50 Low back pain, unspecified; R79.89 Other specified abnormal findings of blood chemistry
CPT/HCPCS: 36415; 72110; 82627; 84402; 84403

== ENCOUNTER → 2024-08-01 15:14 | Outpatient (CLI) | payer OTHER, MEDICAID, SELFPAY ==
--- NOTE | 2024-08-01 15:15 | DI.RAD.S_ITS ---
PROCEDURE: XR THORACIC SPINE 3V INDICATIONS: eval mid back pain TECHNIQUE: 3 views of the thoracic spine were acquired. COMPARISON: None. FINDINGS: Bones: No fractures or dislocations. No suspicious bony lesions. 12 pairs of ribs are noted, and appear intact where visualized. Soft tissues: No paravertebral stripe thickening. IMPRESSION: No acute bony abnormality. Approved by: Barrington Mancilla M.D. on 08/01/2024 at 17:28
== END ==
PROVIDERS: Family Provider Registered Nurse Diabetes Educator; PCP Registered Nurse Diabetes Educator; Referring Provider Registered Nurse Diabetes Educator; Visit Provider Registered Nurse Diabetes Educator
DX: M54.9 Dorsalgia, unspecified (principal)
CPT/HCPCS: 72072

== ENCOUNTER 2024-10-25 06:11 | Day surgery (SDC) | payer OTHER, SELFPAY ==
[2024-10-18 09:38] VITALS: BMI 22.6
[2024-10-25] VITALS (16 sets, daily range): BP systolic 100–119; BP diastolic 45–70; PULSE 61–98; RESP 11–18; TEMP 35.7–36.9; O2SAT 97–100; BMI 10.1
[2024-10-25] MEDS: LACTATED RINGERS 1,000 ML 42 ML IV ×2 (07:00→09:41)
[2024-10-25] MEDS: SCOPOLAMINE 1 PATCH TOP (07:07)
[2024-10-25] MEDS: ACETAMINOPHEN 325 MG TABLET 975 MG PO (07:07)
--- NOTE | 2024-10-25 07:41 | P.HPOB_ITS ---
History of Present Illness History of Present Illness Narrative: Sadia Barnett is a 44 year old female 6 para 4 with a symptomatic rectocele and dyspareunia due to scar tissue at the introitus and on the perineum. She presents for a posterior repair and perineoplasty. [facility] Medical History Acne (~1995) Migraines (~1994) ADHD (~1981) Herpes (~1997) Chicken pox (~1987) Injury (~2003) Irregular menstrual cycle (~1996) Abnormal Pap smear of cervix (~2020) Family History Father Hypertension Mother Hypertension Sister Mental health problem Grandfather Diabetes mellitus Grandfather Diabetes mellitus Hypertension Hyperlipidemia Stroke Grandmother Hypertension Stroke Social History household members: none Smoking Status: Former smoker alcohol intake: current Meds Home Medications and Allergies Home Medications Medication Instructions Recorded Confirmed Type No Known Home Medications 10/31/23 10/25/24 History Allergies Allergy/AdvReac Type Severity Reaction Status Date / Time amoxicillin Allergy Unknown ? rash Verified 10/25/24 06:48 Exam Narrative Exam Narrative: HEENT: [No thyromegaly, no anterior cervical or supraclavicular lymphadenopathy.] Lungs:[Clear to auscultation bilaterally, no wheezes.] Cardiovascular: [Regular rate and rhythm, no murmurs, rubs, or gallops]. Abdomen: [No scars. No hepatosplenomegaly. No masses palpable.] External genitalia: Patient has a flap of skin along the perineal body that is very thickened. Vagina: Third-degree rectocele Cervix: [Normal] Bimanual exam: [[6] Week size anteverted uterus. Mobile.] Rectum: Rectal skin tag at the 12 o'clock position. Assessment & Plan Assessment & Plan narrative: Assessment: 44-year-old 6 para 4 with a symptomatic rectocele, scar tissue on the perineum, and a rectal skin tag Plan: Posterior repair with perineoplasty and removal of rectal skin tag The risks, benefits, and alternatives to the procedure were explained to the patient. The risks including bleeding, infection, or injury to the rectum. She understands these risks and agrees to proceed. A full par Q was held and consent form was signed. Time-Based Coding :: [TOTAL MINUTES] spent with patient and on the chart (including review of chart, obtaining history, exam, reviewing outside data, placing orders, documenting exam and treatment plan, and counseling patient) on [DATE].
--- NOTE | 2024-10-25 07:43 | PM.PREOP ---
Pre-operative Note Interval Note History & Physical reviewed/Exam performed by Physician: Yes Changes to H&P: No H&P completed within 30 days and has changed as indicated here:: 10/25/24
[2024-10-25] MEDS: CEFAZOLIN 2 GM/100 ML PREMIX 100 ML IV (07:47)
--- NOTE | 2024-10-25 08:03 | SUR.OPER ---
Lithotomy on padded OR bed, head on pillow, arms secured on padded arm boards at <90 degrees abduction. Legs secured in padded yellow fins stirrups.
[2024-10-25] MEDS: BUPIVACAINE 0.25% (PF) 30 ML, EPINEPHrine 0.15 MG INJ (08:10)
--- NOTE | 2024-10-25 09:47 | PM.GYNOP.1 ---
Operative Date/Time/Diagnoses Date of procedure: 10/25/24 Time of procedure: 09:47 Pre-op diagnosis: Symptomatic rectocele Scar tissue at previous obstetrical laceration site Rectal skin tag Post-op diagnosis: same Procedure & Clinicians Procedure: Procedures Operation Date: 10/25/24 07:45 Actual Procedure Side Surgeon p Posterior Repair and rectal skin tag removal Yamila Taveras MD Indications: 44-year-old 6 para 4 with a symptomatic rectocele requiring splinting for bowel movements. She has discomfort with intercourse due to scar tissue from previous obstetrical laceration site. Has a rectal skin tag which requires extensive cleaning with bowel movements. Surgeon: Yamila Taveras Anesthesia Type: General and Local Operative Notes Findings: Third-degree rectocele Thickened tissue/flap along the perineal body 1.5 cm rectal skin tag Closure Type: primary Specimen(s): none Estimated blood loss (mL): 50 Blood products transfused: none Procedure in detail: After informed consent was obtained, the patient was taken to the operating room where she was placed in the dorsal supine position. After adequate general endotracheal anesthesia was achieved, she was placed in the dorsal lithotomy position, and prepped and draped in the usual sterile fashion. A time-out was performed. Allis clamps were placed at the mucocutaneous junction at the introitus. Wide Allis clamps were placed in the midline of the rectocele, approximately 6. 10 cc of 0.25% Marcaine with epinephrine were injected submucosally on either side of the Allis clamps. 5 cc of 0.25% Marcaine with epinephrine were injected at the introitus. An incision was made between the 2 Allis clamps and a triangular piece of tissue extending down onto the perineal body was excised. The mucosa was undermined using the Metzenbaum scissors and the wide Allis clamps moved to the mucosa edges. The mucosa was dissected off of the underlying fascia using a # 10 blade and an open moistened Ray-Tonia. The fascia was reapproximated with 0 Vicryl with horizontal mattress sutures. The excess vaginal mucosa was excised. The mucosa was closed with 2-0 Vicryl in simple interrupted sutures including the underlying fascia to close the space. At the introitus a stitch was placed into the levators using 0 Vicryl. The perineal body was reapproximated with 2-0 Vicryl. There was a flap of skin from a previous obstetrical laceration site and this was excised using the Metzenbaum scissors. The skin was closed 2-0 chromic in a subcuticular fashion. Several retention sutures with the 2-0 chromic were placed. At the anus there was a skin tag from a previous hemorrhoid. 3 cc of 0.25% Marcaine with epinephrine were injected below the skin tag. This was excised with the Metzenbaum scissors. Three simple interrupted sutures with 3-0 chromic were placed to reapproximate. A rectal exam was performed with Surgilube and there were no stitches palpable in the rectum. Sponge, lap, and instrument counts were correct x2. The patient tolerated the procedure well, and was taken to PACU in stable condition. Complications: none Post-operative Condition: stable Disposition: PACU Plan for aftercare: To acute care after recovery
[2024-10-25] MEDS: KETOROLAC 30 MG/ML VIAL IV ×2 (15:30→20:38)
[2024-10-25] MEDS: ACETAMINOPHEN 325 MG TABLET 650 MG PO (16:52)
--- NOTE | 2024-10-25 17:29 | PC.NURSE ---
Patient arrived this a.m. from PACU. A&OX4, VSS, afebrile on RA. She initially feels the urge to void and is assisted to the edge of the bed and then to stand and walk to the bathroom. She ambulates with steady gait and reports pain minimal. Noted minimal bleeding from vag packing. She is able to void and PVF <20 x3. Patient notes slight BM in brief, she hadn't been aware of. She reports pain well controlled with ice, tylenol and toradol. She denies n/v and tolerates lunch and dinner well. Continuous monitoring.
[2024-10-25] MEDS: DOCUSATE 100 MG CAPSULE 200 MG PO (20:39)
[2024-10-26 01:03] VITALS: BP 114/47; PULSE 60; RESP 18; TEMP 37.1; O2SAT 98
[2024-10-26 05:56] VITALS: BP 111/47; PULSE 57; RESP 18; TEMP 36.2; O2SAT 98
[2024-10-26 06:09] LABS: Add Manual Diff / Slide Review NO; Basophils Absolute Auto 0 /uL (0-100); Basophils Percent Auto 0.2 % (0-2); Eosinophils Absolute Auto 100 /uL (0-450); Eosinophils Percent Auto 0.7 % (2-4); Hematocrit 36.1 % (36-46); Hemoglobin 12.5 g/dL (12.0-16.0); Lymphocytes Absolute Auto 2100 /uL (1100-4500); Lymphocytes Percent Auto 18.1 % (25-40); Mean Corpuscular HGB Conc 34.5 % (30-36); Mean Corpuscular Hemoglobin 30.4 PG (26-34); Mean Corpuscular Volume 87.9 fL (80-100); Monocytes Absolute Auto 900 /uL (0-900); Neutrophils Absolute Auto 8300 /uL (1500-7000); Platelet Count 268 X10^3/uL (150-400); Red Blood Cell Count 4.11 X10^6/uL (4.0-5.2); Red Cell Distribution Width 12.5 % (11.6-14.8); White Blood Cell Count 11.4 X10^3/uL (4.5-11.0)
[2024-10-26 08:06] VITALS: BP 91/38; PULSE 76; RESP 16; TEMP 36.6; O2SAT 98
[2024-10-26] MEDS: DOCUSATE 100 MG CAPSULE 200 MG PO (09:02)
[2024-10-26] MEDS: ACETAMINOPHEN 325 MG TABLET 650 MG PO (09:06)
--- NOTE | 2024-10-26 09:27 | CM.DANOTE ---
Patient is a 44 yo female who was admitted [facility] [place] for Perineoplasty. Pt has [facility] for insurance and her PCP is eDrik Perla at [facility]. EMR was reviewed. Per OBGYN, pt with 6 para 4 and admitted for planned procedure for perineoplasty and tolerated procedure well. Per RN, pt ambulating with steady gait in the room and tolerated diet and pain controlled. Per OBGYN, pt medically stable to d/c home today with outpt f/u and no identified barriers to discharge. SW met briefly bedside with pt and explained role and she confirms she lives in [place] with her family and is independent at baseline and drives. Pt's preference is home today via family POV and does not anticipate any discharge needs at this time. Plan: Patient to d/c home today with outpt f/u and no further discharge planning needs at this time. SHENG French Discharge Planning/Care Management CM Discharge Assessment Start: 10/26/24 09:25 Freq: Status: Active Protocol: Document 10/26/24 09:25 BF (Rec: 10/26/24 09:26 BF [id number]) Discharge Planning Assessment Assigned [place] Nurse SHENG Acosta DPOA/Assigned Designee Name none Advance Directives? No Advance Directives on File No History Provided By Patient,Medical Record Has Patient been admitted in last 30 No days? Prior Living Arrangements House Household Members family Type of transporation used prior to Drives own vehicle admit Independent with ADL's Yes Is patient alert and oriented? Yes Caregiver for Another Yes: kids at home Barriers to Discharge No Discharge Plan Home Transportation Arrangement Family to provide transport today Referrals Initiated None needed Whiteboard Updated in Patient Room with Yes name and ext. # of [place] Nurse Review Status In Process Please Provide Date Initial DC 10/26/23 Assessment Was Performed Next Review Type Continued Stay Review Pre-Anesthesia Assessment Start: 10/18/24 09:38 Freq: Status: Complete Protocol: Document 10/18/24 09:38 LB (Rec: 10/18/24 09:58 LB [id number]) Pre-Anesthesia Assessment PAC Comment 10/18/24 Pt called with concerns regarding anesthesia. Pt is anxious and fearful of nausea and the unknown. Spoke to pt at length to allay fears . Patient Information Reviewed Via Chart Review Comment No recent testing identified. 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 No Hx Sleep Apnea No Currently Taking a Beta Jasper No Anti-Coagulant Therapy No Cardiac Testing No Hx Pacemaker/ICD No Hx Urinary Self Catheterization No Diabetes No Presence of External or Internal Medical No Devices Patient Discharge Plan Description Return Home Emergency Contact Name Claire Cid - Mother Emergency Contact Advance Directives on File No
--- NOTE | 2024-10-26 09:34 | PC.NURSE ---
Discharge note: Patient awake, alert, ambulating independently and voiding without issues. Pain controlled with Tylenol PO. Discharge instructions given to patient, discussed importance of signs of worsening symptoms, OTC medications, and post op F/U visit. Verbalized understanding of instruction. Home via private vehicle accompanied by significant other.
== END 2024-10-26 10:00 | disposition home or self-care (01) ==
LOC: OR 06:13 → AC 06:13
PROVIDERS: Family Provider Registered Nurse Diabetes Educator; PCP Registered Nurse Diabetes Educator; Referring Provider Obstetrics & Gynecology; Visit Provider Obstetrics & Gynecology
PROC: (CPT 57250; principal; 2024-10-25 07:45)
DX: N81.6 Rectocele (principal); K64.4 Residual hemorrhoidal skin tags
CPT/HCPCS: 57250; 46220; 36415; 85025; J0171; J0690; J1100; J1885; J2250; J2405; J2704; J3010

== ENCOUNTER 2024-12-09 07:17 | Day surgery (SDC) | payer OTHER, SELFPAY ==
[2024-10-25 11:48] VITALS: BMI 10.1
[2024-12-03 14:53] VITALS: BMI 22.6
[2024-12-09] VITALS (8 sets, daily range): BP systolic 99–114; BP diastolic 62–70; PULSE 56–90; RESP 9–16; TEMP 36.1–36.9; O2SAT 100; BMI 22.7
--- NOTE | 2024-12-09 | PATH_ITS ---
[facility] Accession Number: [id number] No. of containers..02 Tissue . 01 Material submitted: . PART A: fallopian tube - BILATERAL FALLOPIAN TUBES AND PERITUBAL CYST PART B: endometrium - ENDOMETRIAL CURETTINGS . 01 Diagnosis: A. BILATERAL FALLOPIAN TUBES AND PARATUBAL CYST: Fallopian tubes x2, complete cross-sections, with paratubal cysts (up to 4 mm); negative for significant atypia. Separate benign serous cysts (7 mm and 9 mm in greatest dimension). . B. ENDOMETRIAL CURETTINGS: Portions of secretory endometrium; negative for endometrioid intraepithelial neoplasia or malignancy. [facility] 12/13/2024 1328 Local . 01 Electronically signed: . Pauline Meza MD, Pathologist NPI- [id number] . 01 Gross description: . A. Received in formalin with two patient identifiers and bilateral fallopian tubes and peritubal cysts, are two unoriented fimbriated fallopian tubes (7.5 x 0.7 cm and 8.2 x 0.5 cm) along with two separate thin-walled cystic structures (0.7 x 0.6 x 0.6 cm and 0.9 x 0.7 x 0.7 cm). . Both tubes has violaceous smooth serosa with attached cysts, up to 0.4 cm in greatest dimension with clear serous fluid. The lumens are stellate and unremarkable. . The detached cysts contain clear serous fluid. Squaring Shear Operator sections are submitted as follows: A1: Longer fallopian tube to include one-half of bisected fimbriae and cross-sections. A2: [place] fallopian tube to include one-half of bisected fimbria and cross-sections. A3: Both detached cysts. . B. Received in formalin with two patient identifiers and endometrial curetting, are multiple maciel to brown soft tissue fragments admixed in mucohemorrhagic material received on friable Telfa paper aggregating to 2.2 x 1.9 x 0.2 cm. Filtered and submitted in B1. ([id number]) /MRV 12/10/2024 1452 Local . 01 Pathologist provided ICD-10: Z30.2 . 01 CPT . 580107, [id number] Specimen Comment: A courtesy copy of this report has been sent to [phone] Performed at: [address] [facility], [place], [place] [id number] MD Mynor Noble MD Phone: [phone]
[2024-12-09] MEDS: LACTATED RINGERS 1,000 ML 21 ML IV (07:47)
[2024-12-09] MEDS: SCOPOLAMINE 1 PATCH TOP (08:40)
--- NOTE | 2024-12-09 08:44 | P.HPOB_ITS ---
History of Present Illness History of Present Illness Reason for admission: vaginal bleeding and other (sterilization) Narrative: Sadia Barnett is a 44 year old female who presents for a laparoscopic salpingectomy and D&C hysteroscopy due to desire for sterilization and abnormal uterine bleeding [facility] Medical History Acne (~1995) Migraines (~1994) ADHD (~1981) Herpes (~1997) Chicken pox (~1987) Injury (~2003) Irregular menstrual cycle (~1996) Abnormal Pap smear of cervix (~2020) Surgical History (Updated 12/03/24 @ 15:01 by Blanca Andrews RN) History of gynecologic surgery (10/25/24) Family History Father Hypertension Mother Hypertension Sister Mental health problem Grandfather Diabetes mellitus Grandfather Diabetes mellitus Hypertension Hyperlipidemia Stroke Grandmother Hypertension Stroke Social History household members: family Smoking Status: Former smoker alcohol intake: current Meds Home Medications and Allergies Home Medications Medication Instructions Recorded Confirmed Type No Known Home Medications 10/31/23 12/06/24 History Allergies Allergy/AdvReac Type Severity Reaction Status Date / Time amoxicillin Allergy Unknown ? rash Verified 12/09/24 07:51 Exam Vital Signs (past 8 hours): - 12/09/24 07:52 Temperature 98.4 F Pulse Rate 71 Respiratory Rate 16 Blood Pressure 99/67 Pulse Oximetry 100 Oxygen Delivery Method Room Air Oxygen Delivery Method Room Air Narrative Exam Narrative: Gen: NAD Lungs: CTA bilat CV: RRR Abd: No scars. No HSM. No masses Bimanual: Deferred to OR Ext: No edema Assessment & Plan Assessment & Plan narrative: Assessment: 44 year old who has abnormal uterine bleeding and desires sterilization Plan: D&C hysteroscopy and laparoscopic removal of both tubes The risks, benefits and alternatives to the procedure were explained to the patient. The risks including bleeding, infection, injury to the bowel, bladder, ureters, or uterine perforation. She understands these risks and agrees to proceed. A full PAR-Q was held and consent form was signed. Time-Based Coding :: [TOTAL MINUTES] spent with patient and on the chart (including review of chart, obtaining history, exam, reviewing outside data, placing orders, documenting exam and treatment plan, and counseling patient) on [DATE].
--- NOTE | 2024-12-09 08:50 | PM.PREOP ---
Pre-operative Note Interval Note History & Physical reviewed/Exam performed by Physician: Yes Changes to H&P: No H&P completed within 30 days and has changed as indicated here:: 12/09/24
--- NOTE | 2024-12-09 09:38 | SUR.OPER ---
Lithotomy on padded OR bed, head on pillow, arms secured on padded arm boards at <90 degrees abduction. Legs secured in padded yellow fins stirrups.
[2024-12-09] MEDS: BUPIVACAINE 0.5% W/ EPI (PF) 30 ML VIAL INJ (09:44)
--- NOTE | 2024-12-09 10:07 | PM.GYNOP.1 ---
Operative Date/Time/Diagnoses Date of procedure: 12/09/24 Time of procedure: 10:07 Pre-op diagnosis: Desires sterilization Abnormal uterine bleeding Post-op diagnosis: same Procedure & Clinicians Procedure: Procedures Operation Date: 12/09/24 09:00 Actual Procedure Side Surgeon p Laparoscopic bilateral Salpingectomy, lysis of omental adhesion, hysteroscopy D&C Bilateral Yamila Taveras MD Indications: 44 year old who desires sterilization Abnormal uterine bleeding Surgeon: Yamila Taveras Anesthesia Type: General and Local Operative Notes Findings: 8 wk size anteverted uterus Normal uterus, and ovaries Bilateral paratubal cysts Normal liver and gallbladder Normal appendix Omental to anterior abdominal wall adhesion in the mid upper abdomen Closure Type: primary Specimen(s): endometrial curettings, left tube and right tube Estimated blood loss (mL): 5 Blood products transfused: none Procedure in detail: After informed consent was obtained, the patient was taken to the operating room where she was placed in the dorsal supine position. After adequate general endotracheal anesthesia was achieved, she was placed in the dorsal lithotomy position, and prepped and draped in the usual sterile fashion. A time-out was performed. A bivalve speculum was placed into the vagina and the anterior lip of the cervix was grasped with a single-tooth tenaculum. The cervical os was sequentially dilated until the Zumi uterine manipulator could pass easily into the endometrial cavity. The single-tooth tenaculum was removed from the anterior lip of the cervix. The bivalve speculum was removed from the vagina. Attention was then turned to the abdomen where 6 cc of 0.5% Marcaine with epinephrine were injected in the umbilical fold. A 5 mm incision was made. The Veress needle was placed into the peritoneal cavity, and its placement confirmed by aspiration and drop test. The abdominal cavity was insufflated with 2.8 L of CO2. The Veress needle was removed, and a cuffed 5 mm trocar was placed without difficulty. The balloon was inflated. Two other incisions were made 4 cm lateral to the midline on either side after 6 cc of 0.5% Marcaine with epinephrine were injected. To cuff 2 5 mm trocars were placed under direct visualization. The balloons were inflated. The probe was used to identify both tubes and ovaries. With the findings of bilateral paratubal cysts. The appendix was identified and was normal. The gallbladder and liver were normal. In the mid upper abdomen there was an omental to anterior abdominal wall adhesion. Using the power seal this was taken down with cautery and cut. The right tube was grasped with an atraumatic grasper. Using the power seal, the mesosalpinx was cauterized and cut all the way to the cornua of the uterus. The tube was amputated at the cornua. This was repeated on the patient's right side. Also on the right side was a small paratubal cyst. This was grasped and cauterized and cut. The tubes and paratubal cysts were removed through the 5 mm trocars. The pelvis was examined and no bleeding was noted. The instruments were removed from the abdomen. The CO2 was allowed to escape. The incisions were repaired with 4-0 Monocryl in a subcuticular fashion. Steri-Strips and Allevyn dressings were placed. Attention was turned to the vagina where the Zumi uterine manipulator was removed from the uterus. The hysteroscope pass easily into the endometrial cavity. Both fallopian tube ostia were observed. There was some thickened tissue. The hysteroscope was removed. Sharp curettage was performed yielding a large amount of endometrial curettings. The instruments were removed from the uterus. The single-tooth tenaculum was removed from the anterior lip of the cervix. The bivalve speculum was removed from the vagina. Sponge, lap, and instrument counts were correct x2. The patient tolerated the procedure well, and was taken to PACU in stable condition. Complications: none Post-operative Condition: stable Disposition: PACU Plan for aftercare: Home after recovery
[2024-12-09] MEDS: ACETAMINOPHEN 325 MG TABLET 975 MG PO (11:51)
== END 2024-12-09 12:11 | disposition home or self-care (01) ==
PROVIDERS: Family Provider Registered Nurse Diabetes Educator; PCP Registered Nurse Diabetes Educator; Referring Provider Obstetrics & Gynecology; Visit Provider Obstetrics & Gynecology
PROC: 0UT74ZZ Resection of Bilateral Fallopian Tubes, Percutaneous Endoscopic Approach (ICD-10-PCS; CPT 58661; principal; 2024-12-09 09:00)
DX: Z30.2 Encounter for sterilization (principal); K66.0 Peritoneal adhesions (postprocedural) (postinfection); N93.9 Abnormal uterine and vaginal bleeding, unspecified; N83.202 Unspecified ovarian cyst, left side; N83.201 Unspecified ovarian cyst, right side; N83.8 Other noninflammatory disorders of ovary, fallopian tube and broad ligament
CPT/HCPCS: 58661; 58558; 81025; J1100; J1885; J2250; J2405; J2704; J3010

== ENCOUNTER → 2024-12-25 13:26 | Outpatient (CLI) | payer OTHER, SELFPAY ==
[2024-10-25 11:48] VITALS: BMI 10.1
[2024-12-27 11:36] LABS: Candida species Negative (Negative); Gardnerella vaginalis Positive (Negative); Trichomoas vaginalis Negative (Negative)
== END ==
PROVIDERS: Family Provider Registered Nurse Diabetes Educator; PCP Registered Nurse Diabetes Educator; Visit Provider Obstetrics & Gynecology
DX: N89.8 Other specified noninflammatory disorders of vagina (principal)
CPT/HCPCS: 87480; 87510; 87660

== ENCOUNTER → 2025-02-19 15:27 | Outpatient (CLI) | payer OTHER, SELFPAY ==
[2024-10-25 11:48] VITALS: BMI 10.1
[2025-02-19 17:14] LABS: Alanine Aminotransferase 44 IU/L (<35); Albumin 4.6 g/dL (3.5-5.0); Albumin Globulin Ratio 1.6 (1.0-2.8); Alkaline Phosphatase 53 U/L (38-126); Aspartate Aminotransferase 39 IU/L (14-36); BUN Creatinine Ratio 19.6 (6-22); Bilirubin Total 0.6 mg/dL (0.2-1.3); Blood Urea Nitrogen 20 mg/dL (7-17); C-Reactive Protein Quant < 0.5 mg/dL (<1.0); Calcium 9.2 mg/dL (8.4-10.2); Carbon Dioxide 30 mmol/L (22-32); Chloride 100 mmol/L (98-107); Estimated Glomerular Filt Rate > 60 mL/min (>60); Globulin 2.9 g/dL (1.7-4.1); Glucose 87 mg/dL (70-99); HEMOLYSIS < 15 (0-50); Sodium 138 mmol/L (137-145); Total Protein 7.5 g/dL (6.3-8.2)
[2025-02-19 17:25] LABS: Erythrocyte Sedimentation Rate 6 MM/HR (0-20)
[2025-02-19 17:58] LABS: Vitamin B12 568 pg/mL (239-931)
[2025-02-28 12:41] LABS: HLA B27 Negative (.)
== END ==
PROVIDERS: Family Provider Registered Nurse Diabetes Educator; PCP Registered Nurse Diabetes Educator; Referring Provider Physician Assistant; Visit Provider Physician Assistant
DX: M54.9 Dorsalgia, unspecified (principal); G89.29 Other chronic pain
CPT/HCPCS: 36415; 80053; 81374; 82607; 85651; 86140

== ENCOUNTER → 2025-05-27 10:54 | Outpatient (CLI) | payer OTHER, SELFPAY ==
[2025-05-15 15:29] VITALS: BMI 10.1
[2025-05-27 11:57] LABS: Hemoglobin A1C% w Est Avg Glu 5.2 % (4.0-6.0)
[2025-05-27 12:04] LABS: Alanine Aminotransferase 24 IU/L (<35); Albumin 4.7 g/dL (3.5-5.0); Albumin Globulin Ratio 1.7 (1.0-2.8); Alkaline Phosphatase 46 U/L (38-126); Globulin 2.7 g/dL (1.7-4.1); HEMOLYSIS < 15 (0-50); Total Protein 7.4 g/dL (6.3-8.2)
[2025-05-27 12:08] LABS: Add Manual Diff / Slide Review NO; Hematocrit 41.6 % (36-46); Hemoglobin 14.5 g/dL (12.0-16.0); Lymphocytes Absolute Auto 2000 /uL (1100-4500); Mean Corpuscular HGB Conc 34.8 % (30-36); Mean Corpuscular Hemoglobin 30.9 PG (26-34); Mean Corpuscular Volume 88.7 fL (80-100); Platelet Count 238 X10^3/uL (150-400)
== END ==
PROVIDERS: PCP Registered Nurse Diabetes Educator; Referring Provider Registered Nurse Diabetes Educator; Visit Provider Registered Nurse Diabetes Educator
DX: R74.8 Abnormal levels of other serum enzymes (principal); D72.829 Elevated white blood cell count, unspecified; Z83.3 Family history of diabetes mellitus
CPT/HCPCS: 36415; 80076; 83036; 85025

== ENCOUNTER → 2025-09-02 19:03 | Outpatient (CLI) | payer OTHER, SELFPAY ==
[2025-05-15 15:29] VITALS: BMI 10.1
--- NOTE | 2025-09-02 19:04 | DI.MRI.S_ITS ---
PROCEDURE: MR LUMBAR SPINE WO CON
== END ==
LOC: MRI 19:03
PROVIDERS: PCP Registered Nurse Diabetes Educator; Referring Provider Physical Medicine & Rehabilitation; Visit Provider Physical Medicine & Rehabilitation
DX: M47.816 Spondylosis without myelopathy or radiculopathy, lumbar region (principal); M51.369 Other intervertebral disc degeneration, lumbar region without mention of lumbar back pain or lower extremity pain; M48.061 Spinal stenosis, lumbar region without neurogenic claudication; G89.29 Other chronic pain
CPT/HCPCS: 72148

== ENCOUNTER → 2025-09-20 11:21 | Outpatient (CLI) | payer OTHER, SELFPAY ==
[2025-05-15 15:29] VITALS: BMI 10.1
--- NOTE | 2025-09-20 11:23 | DI.MG.S_ITS ---
MM screening mammo BI: 09/20/2025. BI-RADS: 0 CLINICAL: 44-year old female for bilateral screening mammogram. Tyrer-Cuzick lifetime risk of 7.6%. No personal or first-degree family history of breast cancer. PRIOR EXAMS: None. This is a baseline mammogram. MAMMOGRAPHY TECHNIQUE: 2D and 3D (tomosynthesis) digital mammographic views obtained, with additional images as needed for full coverage. Current study was also evaluated with a Computer Aided Detection (CAD) system. DENSITY C. The breasts are heterogeneously dense, which may obscure small masses. MAMMOGRAPHY FINDINGS Right: MLO only, Central, Middle depth: Asymmetry needing additional imaging evaluation. Left: No suspicious mass, asymmetry, microcalcification, or other abnormality seen. IMPRESSION: Right (Asymmetry): MLO only, Central, Middle depth * Incomplete - asymmetry needing additional imaging evaluation. Left * No evidence of malignancy. RECOMMENDATIONS Right: MLO only, Central, Middle depth * Further evaluation with diagnostic mammography and diagnostic ultrasound. Ultrasound to be performed only if needed. OVERALL ASSESSMENT CATEGORY BI-RADS-0: Incomplete - Need Additional Imaging Evaluation. ELECTRONICALLY SIGNED: Bro Harrison M.D. on 09/22/2025 at 07:43:54 AM PT Interpreting Station ID: [id number]
== END ==
LOC: MAMMO 11:23
PROVIDERS: PCP Registered Nurse Diabetes Educator; Referring Provider Registered Nurse Diabetes Educator; Visit Provider Registered Nurse Diabetes Educator
DX: Z12.31 Encounter for screening mammogram for malignant neoplasm of breast (principal); R92.333 Mammographic heterogeneous density, bilateral breasts
CPT/HCPCS: 77063; 77067